=== PATIENT | male | born 1940 | race Caucasian/White ===

== ENCOUNTER → 2018-08-01 | Outpatient (CLI) | payer OTHER ==
[~2018-08-01] MED LIST: FERR325T22 PO; GABA-529 PO; LISI1TAB9 PO; SIMV40TA5 PO
== END | disposition home or self-care (01) ==
LOC: SHCH 08:45
PROVIDERS: ATTEND Internal Medicine Cardiovascular Disease
DX: I65.23 Occlusion and stenosis of bilateral carotid arteries (principal); Z85.46 Personal history of malignant neoplasm of prostate; Z72.89 Other problems related to lifestyle; I10 Essential (primary) hypertension; E78.00 Pure hypercholesterolemia, unspecified
CPT/HCPCS: 93880

== ENCOUNTER → 2023-09-06 | Outpatient (CLI) | payer MEDICARE, OTHER ==
[~2023-09-06] MED LIST changes: +LISI1TAB49 PO; -LISI1TAB9 PO; +SIMV-46 PO; -SIMV40TA5 PO
== END | disposition home or self-care (01) ==
LOC: LAB 13:01
PROVIDERS: ATTEND Internal Medicine Cardiovascular Disease
DX: I10 Essential (primary) hypertension (principal)
CPT/HCPCS: 36415; 83880

== ENCOUNTER → 2024-09-05 | Outpatient (CLI) | payer MEDICARE, OTHER ==
[2024-09-05 12:17] LABS: BASOPHILS # (AUTO) 0.05 K/uL (0.00-0.20); BASOPHILS % (AUTO) 0.6 % (0.0-5.0); EOSINOPHILS # (AUTO) 0.27 K/uL (0.00-0.70); EOSINOPHILS % (AUTO) 3.3 % (0.0-8.0); HEMATOCRIT 36.7 % (42-54); IMMATURE GRANULOCYTE ABSOLUTE 0.04 K/uL (0-1); LYMPHOCYTES # (AUTO) 2.1 K/uL (1.0-4.8); LYMPHOCYTES % (AUTO) 25.8 % (21.0-51.0); MEAN CORPUSCULAR HEMOGLOBIN 32.9 pg (27.0-33.0); MEAN CORPUSCULAR HGB CONC 32.4 g/dL (32.0-36.0); MEAN CORPUSCULAR VOLUME 101.4 fL (79-99); MONOCYTES # (AUTO) 0.7 K/uL (0.1-1.0); MONOCYTES % (AUTO) 8.1 % (3.0-13.0); NEUTROPHILS % (AUTO) 61.7 % (40.0-77.0); PLATELET COUNT (AUTO) 242 K/uL (130-400); RED BLOOD CELL COUNT(AUTO) 3.62 MIL/uL (4.50-6.20); RED CELL DISTRIBUTION WIDTH 13.2 % (11.0-15.5); WHITE BLOOD COUNT (AUTO) 8.1 K/uL (4.8-10.8)
[2024-09-05 12:36] LABS: HEMOGLOBIN A1C 5.5 % (4.0-6.0)
[2024-09-05 13:14] LABS: ALBUMIN 3.6 g/dL (3.5-5.0); BILIRUBIN,TOTAL 0.6 mg/dL (0.2-1.0); POTASSIUM 4.3 mmol/L (3.5-5.1); T4 (THYROXINE) 7.4 ug/dL (4.7-13.3); THYROID STIMULATING HORMONE 3.67 uIU/mL (0.36-3.74); TOTAL PROTEIN, SERUM 7.8 g/dL (6.0-8.3)
== END | disposition home or self-care (01) ==
LOC: LAB 09-04 10:55
PROVIDERS: ATTEND Internal Medicine Cardiovascular Disease
DX: I10 Essential (primary) hypertension (principal); E78.49 Other hyperlipidemia; E11.9 Type 2 diabetes mellitus without complications; Z79.899 Other long term (current) drug therapy
CPT/HCPCS: 36415; 80053; 80061; 82607; 82728; 82747; 83036; 83540; 83550; 83880; 84436; 84443; 84479; 85025

== ENCOUNTER → 2024-09-07 | Outpatient (CLI) | payer MEDICARE, OTHER ==
--- NOTE | 2024-09-10 07:22 | HMCSR ---
APPROVED REPORT Laterality: Bilateral Indications r06.00,j44.9, i10 Doppler Spectral Velocity Analysis PSV / EDVPSV / EDV ECA (R) 95 / cm/sECA (L) 95 / cm/s dICA (R) 67 / 21 cm/sdICA (L) 76 / 22 cm/s Erick (R) 45 / 15 cm/smICA (L) 88 / 20 cm/s pICA (R) 66 / 20 cm/spICA (L) 107 / 29 cm/s dCCA (R) 56 / 10 cm/sdCCA (L) 88 / 24 cm/s mCCA (R) 95 / 17 cm/smCCA (L) 105 / 20 cm/s pCCA (R) 115 / 22 cm/spCCA (L) 104 / 22 cm/s Vert (R) 35 / cm/sVert (L) 35 / cm/s Subl. (R) 268 / cm/sSubl. (L) 166 / cm/s ICA/CCA 0.58ICA/CCA 1.02 Technologist Impression Mild plaque noted in the bilateral carotids, without hemodynamic significance. Bilateral vertebral arteries appear antegrade. Velocities of the right subclavian artery are suggestive of >50% stneosis. Conclusion Mild plaque noted in the bilateral carotids, without hemodynamic significance. Bilateral vertebral arteries appear antegrade. Velocities of the right subclavian artery are suggestive of >50% stneosis. Conclusion Mild plaque noted in the bilateral carotids, without hemodynamic significance. Bilateral vertebral arteries appear antegrade. Velocities of the right subclavian artery are suggestive of >50% stneosis.
--- NOTE | 2024-09-10 07:26 | HMCSR ---
APPROVED REPORT EXAM: Two-dimensional and M-mode echocardiogram with Doppler and color Doppler. INDICATION ICD: Essential (primary) Hypertension I10.0 2D Dimensions RVDd4.4 cmLVEF(%)49.6 (>50%)LVED Vol(simp.)113.0 mL IVSd0.7 (0.7-1.1cm)FS(%)25 %LVES Vol(simp.)54.0 mL LVDd4.8 (3.8-5.6cm)LA (2D)3.9 (1.6-4.0cm)LVEF(%, simp.)52 % PWd1.0 (0.7-1.1cm)Ao Root(2D)3.2 (2.0-3.7cm)LA ESV INDEX (4CH)41.40 mL/m2 IVSs1.2 cmLVOT diam2.1 (1.8-2.4cm)LA ESV INDEX (2CH)31.20 mL/m2 LVDs3.6 (2.5-4.0cm)IVC diam2.3 cmLA ESV INDEX (BP)38.20 mL/m2 PWs1.3 cm M-Mode Dimensions EPSS1.3 cm LA (MM)3.0 (1.6-4.0cm) Ao Root(MM)3.1 (2.0-3.7cm) Aortic Valve AoV VTI0.3 mAo Mean GR2.0 mmHgLVOT VTI0.18 m MANUEL (VMAX)2.4 cm2AVA (VTI) 2.4 cm2 Mitral Valve MV E Vmax68.6 cm/sDECEL Bjal698 ms MV A Vmax83.9 cm/sP 1/2 T164 ms E/A ratio0.8MVA (PHT)1.3 cm2 TDI E/E' Wieymb33.7E/E' Sapbhce82.6 Medial E' Peak V5.00 cm/sLateral E' Peak V4.70 cm/s Pulmonary Valve PV Vmax0.8 m/sPI End April. Nico 51.6 cm/s PV Peak GR2.0 mmHg Tricuspid Valve TR Vmax2.2 m/sRAP (EST) 8 dgAgKHLR75.0 mmHg TR Peak GR19.0 mmHg Left Ventricle The left ventricle is normal size. There is normal left ventricular wall thickness. LVEF is 50-55%. N o left ventricle thrombus noted on this study. Stage II, diastolic dysfunction. Right Ventricle The right ventricle is normal size. The right ventricular systolic function is normal. Atria The left atrium size is normal. The right atrium size is normal. Aortic Valve The aortic valve is normal in structure. No aortic regurgitation is present. There is no aortic valvu lar stenosis. Mitral Valve The mitral valve is normal in structure. There is no evidence of significant mitral regurgitation. Th ere is no mitral valve stenosis. Tricuspid Valve The tricuspid valve is normal in structure. There is trace tricuspid valve regurgitation noted. Pulmonic Valve The pulmonary valve is normal in structure. There is no pulmonic valvular regurgitation. Great Vessels The aortic root is normal in size. The IVC is normal in size and collapses >50% with inspiration. Pericardium There is no pericardial effusion. Conclusion The left ventricle is normal size. LVEF is 50-55%. Stage II, diastolic dysfunction. The right ventricle is normal size. The left atrium size is normal. The aortic valve is normal in structure. No aortic regurgitation is present. There is no aortic valvular stenosis. There is no evidence of significant mitral regurgitation. There is no mitral valve stenosis. There is trace tricuspid valve regurgitation noted. The pulmonary valve is normal in structure. The aortic root is normal in size. The IVC is normal in size and collapses >50% with inspiration. There is no pericardial effusion.
== END | disposition home or self-care (01) ==
LOC: SHCH 07:41
PROVIDERS: ATTEND Internal Medicine Cardiovascular Disease
DX: I65.23 Occlusion and stenosis of bilateral carotid arteries (principal); I11.9 Hypertensive heart disease without heart failure; J44.9 Chronic obstructive pulmonary disease, unspecified; R06.00 Dyspnea, unspecified
CPT/HCPCS: 93306; 93880

== ENCOUNTER → 2024-09-24 | Outpatient (CLI) | payer MEDICARE, OTHER ==
[2024-09-24] MEDS: REGADENOSON 0.4 MG/5 ML PF SYG IVP ONE (11:52)
--- NOTE | 2024-09-29 14:15 | HMCSR ---
APPROVED REPORT Height: 5 ft 8in Weight: 192 lbs TEST INDICATIONS Hypertension/HDD The imaging protocol used to acquire images was Rest Tc-99m/stress Tc-99m 1 day Consent: The procedure was explained and understood by the patient. Informerd consent was witnessed Becca Ortiz RN First, low dose rest was performed then high dose stress. RESTING DATA: The resting ekg shows: NSR Rest SPECT myocardial perfusion imaging was performed in supine position 73 minutes following the int ravenous injection of 10.8 mCi of Tc-99 Sestamibi. Time of rest injection: 09:23: Date: 09/24/2024 Time of rest imagin:36: Date: 09/24/2024 PHARMACOLOGIC STRESS: Pharmacologic stress test was performed by injecting regadenoson 0.4 mg IV push followed by the intra venous injection of 32.0 mCi of Tc-99 Sestamibi. Time of stress injection: 10:58: Date: 09/24/2024 Time of stress imagin:16: Date: 09/24/2024 Heart Rate at time of stress injection: 56 bpm. Gated Stress SPECT was performed 78 minutes after stress injection. The images were gated to evaluate regional wall motion and calculate left ventricular ejection fracti on. STRESS DETAILS Reason for Termination: Infusion complete Stress Symptoms: Chest Pressure Max HR Achieved: 68 bpm % of APMHR Achieved: 49 Max Blood Pressure: 162/79 mmHg Stress ECG: NSR LEFT VENTRICLE Size: The left ventricular size is normal. Systolic Function:The left ventricular systolic function is normal. Wall Motion: Mild apical hypokinesis. The left ventricular ejection fraction was calculated to be 56%.TID = . LV PERFUSION Subtle, fixed infero-apical and lateral defects. No reversible defects noted. Conclusion The left ventricular size is normal. The left ventricular systolic function is normal. Subtle, fixed infero-apical and lateral defects. No reversible defects noted. The left ventricular ejection fraction was calculated to be 56%.
== END | disposition home or self-care (01) ==
LOC: SHCH 09:05
PROVIDERS: ATTEND Internal Medicine Cardiovascular Disease
DX: R07.89 Other chest pain (principal); I10 Essential (primary) hypertension; R06.00 Dyspnea, unspecified
CPT/HCPCS: 78452; 93017; J2785; A9500 ×2

== ENCOUNTER → 2024-11-14 | Outpatient (CLI) | payer MEDICARE, OTHER ==
[2024-11-14 12:49] LABS: POTASSIUM 5.1 mmol/L (3.5-5.1)
== END | disposition home or self-care (01) ==
LOC: LAB 08:21
PROVIDERS: ATTEND Internal Medicine Cardiovascular Disease
DX: I10 Essential (primary) hypertension (principal)
CPT/HCPCS: 36415; 80048

== ENCOUNTER → 2024-11-21 | Outpatient (CLI) | payer MEDICARE, OTHER ==
[~2024-11-21] MED LIST changes: +IOHEXOL 350 MG/ML 100ML INFUS..BTL IV ONE; +NITROGLYCERIN 4.9GM SPRAY 60 SPRAY/BOT SPRY TL ONE; +metoPROLOL tartRATE 1 MG/ML 5ML VIAL IV ONE
--- NOTE | 2024-11-21 12:11 | HMCIMG ---
CT CARDIAC ANGIO W/CONT. CCTA REASON: Atherosclerotic heart disease of [place] coronary artery without angina pect COMPARISON: None TECHNIQUE: Images are obtained through the heart in the axial plane before and during bolus IV contrast infusion, 100 cc Omnipaque 350. 2-D and 3-D multiplanar reconstruction images were then performed. The injection had to be repeated once due to motion artifact on the first sequence, total contrast volume was 200 cc. FINDINGS: This dictation is for the noncardiac findings only. Cardiac and coronary artery findings are reported separately. Visualized portions of the lungs are clear. There is normal-appearing pulmonary interstitium. There is no hilar or mediastinal lymphadenopathy. Chest wall structures appear unremarkable. IMPRESSION: 1. Unremarkable noncardiac portions of CT cardiac angiography.
== END | disposition home or self-care (01) ==
LOC: RAH 08:25
PROVIDERS: ATTEND Internal Medicine Cardiovascular Disease
DX: I25.10 Atherosclerotic heart disease of native coronary artery without angina pectoris (principal)
CPT/HCPCS: 75574; J3490; Q9967

== ENCOUNTER → 2024-12-25 | Outpatient (CLI) | payer MEDICARE, OTHER ==
[~2024-12-25] MED LIST changes: +ALBUTEROL 0.083% 2.5 MG/3 ML INH IH ONE; -IOHEXOL 350 MG/ML 100ML INFUS..BTL IV ONE; -NITROGLYCERIN 4.9GM SPRAY 60 SPRAY/BOT SPRY TL ONE; -metoPROLOL tartRATE 1 MG/ML 5ML VIAL IV ONE
== END | disposition home or self-care (01) ==
LOC: RESP 12:50
PROVIDERS: ATTEND Internal Medicine Cardiovascular Disease
DX: R06.02 Shortness of breath (principal)
CPT/HCPCS: 94060; 94729

== ENCOUNTER 2025-01-06 08:45 | Day surgery (SDC) | payer MEDICARE, OTHER ==
[2025-01-03 09:12] VITALS: PULSE 86; RESP 18; TEMP 97.2
[2025-01-03 09:14] LABS: BASOPHILS # (AUTO) 0.07 K/uL (0.00-0.20); BASOPHILS % (AUTO) 0.9 % (0.0-5.0); EOSINOPHILS # (AUTO) 0.27 K/uL (0.00-0.70); EOSINOPHILS % (AUTO) 3.5 % (0.0-8.0); HEMATOCRIT 37.7 % (42-54); IMMATURE GRANULOCYTE ABSOLUTE 0.05 K/uL (0-1); LYMPHOCYTES # (AUTO) 2.4 K/uL (1.0-4.8); LYMPHOCYTES % (AUTO) 30.4 % (21.0-51.0); MEAN CORPUSCULAR HEMOGLOBIN 32.7 pg (27.0-33.0); MEAN CORPUSCULAR HGB CONC 33.7 g/dL (32.0-36.0); MEAN CORPUSCULAR VOLUME 97.2 fL (79-99); MONOCYTES # (AUTO) 0.6 K/uL (0.1-1.0); MONOCYTES % (AUTO) 7.2 % (3.0-13.0); NEUTROPHILS # (AUTO) 4.4 K/uL (1.8-7.7); NEUTROPHILS % (AUTO) 57.4 % (40.0-77.0); PLATELET COUNT (AUTO) 237 K/uL (130-400); RED BLOOD CELL COUNT(AUTO) 3.88 MIL/uL (4.50-6.20); RED CELL DISTRIBUTION WIDTH 13.6 % (11.0-15.5); WHITE BLOOD COUNT (AUTO) 7.7 K/uL (4.8-10.8)
[2025-01-03 09:19] LABS: POTASSIUM 4.9 mmol/L (3.5-5.1)
[2025-01-03 09:22] LABS: INR 1.03 (0.85-1.15); PROTHROMBIN TIME 10.9 SEC (9.6-11.6)
[2025-01-03 09:23] LABS: PARTIAL THROMBOPLASTIN TIME 26.5 SEC (26.3-35.5)
[2025-01-03 09:37] LABS: B-TYPE NATRIURETIC PEPTIDE 48 pg/mL (0-100)
[2025-01-03 10:20] LABS: ADD UA MICROSCOPIC NO; APPEARANCE,URINE CLEAR (CLEAR); BILIRUBIN,URINE NEGATIVE (NEGATIVE); COLOR,URINE YELLOW (YELLOW); GLUCOSE, URINE (UA) NEGATIVE (NEGATIVE); KETONES,URINE NEGATIVE (NEGATIVE); LEUKOCYTE ESTERASE ,URINE NEGATIVE Leu/uL (NEGATIVE); NITRATE,URINE NEGATIVE (NEGATIVE); OCCULT BLOOD,URINE NEGATIVE (NEGATIVE); PROTEIN,URINE NEGATIVE (NEGATIVE); UROBILINOGEN,URINE 0.2 mg/dL (0.2-1.0)
--- NOTE | 2025-01-03 10:23 | EKG ---
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
--- NOTE | 2025-01-03 10:41 | HMCIMG ---
CHEST 1VW HISTORY: Preop COMPARISON: None FINDINGS: A frontal projection of the chest was obtained. No acute pulmonary infiltrates is seen. The heart is borderline enlarged. Degenerative changes are seen. Prominent interstitial markings are seen. No evidence of aortic calcification is seen. IMPRESSION: 1. No acute pulmonary infiltrate is seen.
[2025-01-06] VITALS (9 sets, daily range): BP systolic 140–180; BP diastolic 59–85; PULSE 53–62; RESP 14–16; TEMP 98.1
[~2025-01-06] VITALS: Ht 177.8 cm; Wt 91.9 kg
[~2025-01-06 08:45] MED LIST changes: -ALBUTEROL 0.083% 2.5 MG/3 ML INH IH ONE; +ASPI-1443 PO; +BRIN8DRO2 OS; +CALC-1125 PO; -FERR325T22 PO; -GABA-529 PO; +GABA-534 PO; -LISI1TAB49 PO; +MECL25TA39 PO; +MELA10CA2 PO; +METO-408 PO; +OMEP40CA21 PO; +PNV1TABL PO; +POTASSIUM PO; +ROSU10TA72 PO; -SIMV-46 PO; +TAMS-1 PO
[2025-01-06] MEDS: 0.9%NACL 1000ML 1,000 ML IV SCH (10:14)
[2025-01-06] MEDS ORDERED: LIDOCAINE HCL 400MG/20ML VIAL ONE (13:25)
[2025-01-06] MEDS ORDERED: SODIUM BICARB 50MEQ 50ML VIAL 50 ML ONE (13:25)
[2025-01-06] MEDS ORDERED: IOHEXOL 350 MG/ML 100ML INFUS..BTL IV ONE (13:26)
[2025-01-06] MEDS ORDERED: HEParin-NS 1,000 UNIT/500 ML 1,000 ML IV ONE (13:26)
[2025-01-06] MEDS ORDERED: HEParin 10,000 UNIT/10ML (1,000 UNIT/ML) VIAL ONE (13:26)
[2025-01-06] MEDS ORDERED: NITROGLYCERIN 50MG VIAL ONE (13:26)
[2025-01-06] MEDS ORDERED: niCARDIpine 25MG INJ IV ONE (13:34)
[2025-01-06] MEDS ORDERED: MIDAZOLAM HCL 1 MG/ML 2ML VIAL ONE ×2 (13:51→14:52)
[2025-01-06] MEDS ORDERED: FENTanyl CITRate PF 50 MCG/1 ML 2ML VIAL ONE (13:51)
[2025-01-06] MEDS ORDERED: HEParin-NS 1,000 UNIT/500 ML 500 ML IV ONE (14:33)
[2025-01-06] MEDS ORDERED: cloPIDOgrel 300MG TAB ONE (15:17)
[2025-01-06] MEDS ORDERED: 0.9%NACL 1000ML 1,000 ML IV SCH (15:30)
[2025-01-06] MEDS ORDERED: hydrALAZine 20MG/ML VIAL IV PRN (16:45)
--- NOTE | 2025-01-06 16:49 | CCATH ---
PROCEDURE NOTE PROCEDURES: * Left heart catheterization. * Diagnostic selective right and left coronary arteriogram. * Intravascular ultrasound assessment of the RCA. * Balloon angioplasty and stent placement of the proximal to mid RCA. * Conscious sedation for approximately 60 minutes. INDICATIONS: * Recurrent angina. * Abnormal Cardiolite. * Abnormal coronary CT angiogram. * Status post remote right coronary artery stenting. COMPLICATIONS: None. TOTAL CONTRAST: 130 mL. APPROACH: Right radial approach. DESCRIPTION OF PROCEDURE: The patient was taken to the cardiac catheterization lab after appropriate operative consents were signed. He was prepped and draped in the usual fashion. After conscious sedation was administered, the right radial artery region was infiltrated with 2% Xylocaine without epinephrine. The right radial artery was then accessed and a 6-Polish slender sheath was advanced in retrograde fashion by the modified Seldinger technique over an indwelling wire. At this point, a 0.035 wire was advanced. This was followed by placement of a TIG 4 catheter, which was advanced and placed in the left ventricular cavity. Left ventricular end-diastolic pressure measurement was obtained. Ventriculography was deferred. The patient had preserved EF of 50-55% by echocardiographic studies. There was no on pullback. The cannulation of the coronary artery was quite difficult with the TIG 4 catheter due to brachiocephalic subclavian tortuosity. Manipulation of the catheter was quite challenging. We elected to deploy an R2P 75 cm sheath, however, the wire was placed in the ascending aorta. At this point, the FL3.5 catheter was selected and engaged in the ostium of the left main. Imaging was obtained in multiplane. Left main was a small to moderately sized vessel, however, it did not have any significant stenotic lesions. It bifurcated into LAD, and circumflex. The LAD was a large vessel that gave rise to a large branching first diagonal and ongoing LAD with other diagonals and septal perforators. The mid LAD had a 30% stenotic lesion. The large diagonal had an ostial 75-80% segmental lesion. Circumflex was a moderately sized vessel that gave rise to several marginal branches and ongoing circ. The first obtuse marginal branch was fairly high and was a small in caliber. It had an ostial 80% calcified lesion. The circumflex proper had an ostial 80% calcified lesion. The second obtuse marginal branch was moderately sized branching vessel that gave rise to a larger superior ramus and a smaller inferior ramus. The vessel that had a 30% lesion, ongoing circ was small with free of disease. At this point, we utilized multiple catheters and we were able to get an ART 6-Polish guide to cannulate the RCA. This identified severe stenotic lesion in the ostial to proximal RCA, 80% was calcified. The RCA was ectatic after that. There was evidence of stent present in the ectatic segment and distal to that was patent. The acute marginal was normal. The RCA distally was fairly large and gave rise to a PDA and branching PLVB system. Given the patient's symptoms and abnormal Lexiscan Cardiolite and abnormal coronary CT angiogram, we elected to proceed with an intervention for the right coronary artery. A 0.014 wire was advanced after checking the patient's ACT. We were able to obtain an IVUS measurement, which helped us to size the stent into the appropriate measurement. The IVUS has revealed that the patient's stent was a fairly under deployed with significant undersizing, particularly in the proximal section of the stent where it was in the ectatic segment. After that, we were able to advance a 3.5 x 34 Russell [place] stent that was placed from the ostium of the vessel to the distal segment of the previously deployed stent. This was deployed to nominal pressures and was followed by post-dilation with a 3.5 NC balloon to 20 atmospheres with good final angiographic results. At this point, the procedure was completed. The radial band was applied after withdrawing the catheter over an indwelling wire. The patient tolerated the procedure well and left the cardiac catheterization lab in stable condition. FINAL IMPRESSION: * Severe [place] coronary artery disease. * Successful balloon angioplasty and stent placement of the ostial RCA with stent sandwich placement and the under deployed mid RCA stent with good angiographic results utilizing a 3.5 x 34 Russell [place] postdilated with 3.5 x 20 NC balloon to 3.62 mm size with good angiographic results. PLAN: Continue to optimize the patient's medical management. We will consider a complex intervention for the ostial circ and possibly the diagonal for persistent symptoms. TID: [id number] RECEIPT: [id number]
--- NOTE | 2025-01-06 17:45 | NUR ---
report report given to brian aiken rn for continuation of care
--- NOTE | 2025-01-06 18:00 | NUR ---
RE: TR BAND TR BAND IN PLACE TO RIGHT WRIST, NO BLEEDING OR HEMATOMA NOTED. HAND IMMOBILIZER IN PLACE. 2ML AIR REMOVED FROM TR BAND, PT TOLERATED WELL. NO BLEEDING NOTED.
--- NOTE | 2025-01-06 18:45 | NUR ---
RE: TR BAND TR BAND IN PLACE TO RIGHT WRIST, NO BLEEDING OR HEMATOMA NOTED. HAND IMMOBILIZER IN PLACE. 2ML AIR REMOVED FROM TR BAND, PT TOLERATED WELL. NO BLEEDING NOTED. TR BAND REMOVED AND RADIAL SITE COVERED WITH STERILE GAUZE AND SECURED WITH TEGADERM DRESSING.
--- NOTE | 2025-01-06 19:40 | NUR ---
PATIENT DISCHARGED FROM FACILITY VIA WHEELCHAIR BY NURSE AND ASSISTED INTO PRIVATE VEHICLE DRIVEN BY SPOUSE.
== END 2025-01-06 19:40 | disposition home or self-care (01) ==
LOC: DAH 08:45
PROVIDERS: ATTEND Internal Medicine Cardiovascular Disease
DX: R94.39 Abnormal result of other cardiovascular function study (principal); I25.118 Atherosclerotic heart disease of native coronary artery with other forms of angina pectoris; I10 Essential (primary) hypertension; I25.84 Coronary atherosclerosis due to calcified coronary lesion; E66.9 Obesity, unspecified; I25.2 Old myocardial infarction; Z95.5 Presence of coronary angioplasty implant and graft; Z98.890 Other specified postprocedural states; Z90.49 Acquired absence of other specified parts of digestive tract; Z90.89 Acquired absence of other organs; Z82.49 Family history of ischemic heart disease and other diseases of the circulatory system; Z88.8 Allergy status to other drugs, medicaments and biological substances; Z68.28 Body mass index [BMI] 28.0-28.9, adult; Z79.01 Long term (current) use of anticoagulants; Z79.82 Long term (current) use of aspirin; Z79.899 Other long term (current) drug therapy
CPT/HCPCS: 80048; 83880; 85025; 85610; 85730; 81003; 36415; 71045; 93005; 92978; 85347; 93458; C9600; C1887 ×2; C1769 ×2; C1725; C1874; A4649; C1894; C1753; J3010; J3490 ×4; J7030; J1644 ×3; J2250 ×2; Q9967; A4215; A4222; A4221; A4663; A4216; A4606; Q9965 ×2; A4223 ×3; 99156; 99157